=== PATIENT | female | born 1985 | race Caucasian/White ===

== ENCOUNTER 2020-03-22 18:42 | Emergency (ER) | payer OTHER ==
--- NOTE | 2020-03-22 19:17 | ERPHSYRPT ---
- History of Present Illness Historian: patient Patient Subjective Stated Complaint: Right sided pain x 1 week, RLQ pain x today. Triage Nursing Assessment: Pt reports right flank pain last week, today having worsening right sided pain and lower pelvic pain as well as suprapubic pain. Abdomen tender to palpation, bowel sounds audible x 4, denies frequency or hematuria. Right sided pain is constant. Reports white vaginal discharge. LMP 1 week ago. Skin PWD. Physician History: 35 yo wf w supra-pubic pain today/9 out of 10/sharp/R flank pain/nothing makes pain better or worse. Pt currently on cipro for uti prescribed last week by Dr. Langford. She denies fever/dysuria/hematuria/N/V/D. She has had a BTL. Timing/Duration: today Activities at Onset: rest Quality: sharpness Abdominal Pain Onset Location: suprapubic Pain Radiation: flank Severity of Pain-Max: severe Severity of Pain-Current: severe Modifying Factors: Improves With: nothing Associated Symptoms: No chest pain, No diaphoresis, No diarrhea, No fever/chills, No fatigue, No headache, No heartburn, No loss of appetite, No nausea, No neck pain, No rash, No shortness of breath, No syncope, No testicular pain, No vomiting, No weakness Previous symptoms: no prior history Allergies/Adverse Reactions: No Known Drug Allergies Allergy (Unverified 03/22/20 19:03) Hx Tetanus, Diphtheria Vaccination/Date Given: Yes Hx Influenza Vaccination/Date Given: Yes Hx Pneumococcal Vaccination/Date Given: Yes Immunizations Up to Date: Yes Travel Risk - International Travel Have you traveled outside of the country in past 3 weeks: No - Coronavirus Screening Are you exhibiting any of the following symptoms?: No Close contact with a COVID-19 positive Pt in past 14-21 Days: No - Review of Systems Constitutional: No Symptoms Eyes: No Symptoms Ears, Nose, & Throat: No Symptoms Respiratory: No Symptoms Cardiac: No Symptoms Abdominal/Gastrointestinal: No Symptoms, Abdominal Pain Genitourinary Symptoms: No Symptoms Musculoskeletal: No Symptoms Skin: No Symptoms Neurological: No Symptoms Psychological: No Symptoms Endocrine: No Symptoms Hematologic/Lymphatic: No Symptoms Immunological/Allergic: No Symptoms - Past Medical History Pertinent Past Medical History: No - Past Surgical History Past Surgical History: Yes Gastrointestinal: Cholecystectomy Female Surgical History: Tubal Ligation - Social History Smoking Status: Never smoker Exposure to second hand smoke: Yes Drug Use: none Patient Lives Alone: No Significant Family History: no pertinent family hx - Female History Hx Last Menstrual Period: 03/15/2020 Hx Now: No (hx tubal) - Nursing Vital Signs Nursing Vital Signs: Initial Vital Signs Temperature 98.8 F 03/22/20 18:53 Pulse Rate 95 H 03/22/20 18:53 Respiratory Rate 16 03/22/20 18:53 Blood Pressure 140/91 03/22/20 18:53 O2 Sat by Pulse Oximetry 97 03/22/20 18:53 Pain Scale Pain Intensity 3 - Physical Exam General Appearance: no apparent distress Eye Exam: PERRL/EOMI, eyes nml inspection Ears, Nose, Throat Exam: normal ENT inspection, TMs normal, pharynx normal, moist mucous membranes Neck Exam: normal inspection, non-tender, supple, full range of motion, No meningismus, No mass, No Brudzinski, No Kernig's Respiratory Exam: normal breath sounds, lungs clear, airway intact, No respiratory distress Cardiovascular Exam: regular rate/rhythm, normal heart sounds, normal peripheral pulses, No murmur Gastrointestinal/Abdomen Exam: soft, tenderness (Supra-pubic ttp wo guarding/rebound) Back Exam: normal inspection, normal range of motion, CVA tenderness (R) Extremity Exam: normal inspection, normal range of motion Neurologic Exam: alert, oriented x 3, cooperative, vulcanizer II-XII nml as tested, normal mood/affect, sensation nml, No motor deficits, No sensory deficit Skin Exam: normal color, warm, dry, No rash Lymphatic Exam: No adenopathy SpO2 Interpretation: normal SpO2: 97 O2 Delivery: Room Air - CT Exams Abdomen/Pelvis CT Interpretation: Discussed w/radiologist (Splenomegaly/Nothing acute/did not visualize appendix but no inflammation) - Radiology Ultrasound Exam Pelvis Ultrasound: Other (Neg for torsion/cyst per tech) Ordered Tests: Active Orders 24 hr Category Date Time Status ABDOMEN AND PELVIS W/0 CONTRAS [CT] Stat Exams 03/22/20 19:54 Taken PELVIS TRANS VAGINAL [US] Stat Exams 03/22/20 22:03 Taken AMYLASE Stat Lab 03/22/20 20:40 Completed CBC W DIFF Stat Lab 03/22/20 20:40 Completed CMP Stat Lab 03/22/20 20:40 Completed HCG,QUALITATIVE URINE Stat Lab 03/22/20 19:00 Completed LIPASE Stat Lab 03/22/20 20:40 Completed UA W/RFX UR CULTURE Stat Lab 03/22/20 19:05 Completed Medication Summary Discontinued Medications Generic Name Dose Route Start Last Admin Trade Name Freq PRN Reason Stop Dose Admin Ketorolac Tromethamine 30 mg 03/22/20 20:30 03/22/20 20:37 Toradol 30 Mg Injection IV 03/22/20 20:31 30 mg STAT ONE Administration Ketorolac Tromethamine Confirm 03/22/20 20:36 Toradol 30 Mg Injection Administered 03/22/20 20:37 Dose 30 mg .ROUTE .STK-MED ONE Lab/Rad Data: Laboratory Result Diagrams 03/22/20 20:40 03/22/20 20:40 Laboratory Results 03/22/20 03/22/20 03/22/20 Range/Units 20:40 20:40 19:05 WBC 7.7 (4.0-10.5) K/mm3 RBC 4.87 (4.1-5.4) M/mm3 Hgb 14.5 (12.0-16.0) gm/dl Hct 42.5 (35-47) % MCV 87.3 (78-100) fl MCH 29.8 (26-32) pg MCHC 34.1 (32-36) g/dl RDW 12.7 (11.5-14.0) % Plt Count 307 (150-450) K/mm3 MPV 9.5 (7.5-11.0) fl Gran % 51.1 (36.0-66.0) % Eos # (Auto) 0.26 (0-0.5) Absolute Lymphs (auto) 2.77 (1.0-4.6) Absolute Monos (auto) 0.69 (0.0-1.3) Lymphocytes % 36.2 (24.0-44.0) % Monocytes % 9.0 (0.0-12.0) % Eosinophils % 3.4 (0.00-5.0) % Basophils % 0.3 (0.0-0.4) % Absolute Granulocytes 3.92 (1.4-6.9) Basophils # 0.02 (0-0.4) Sodium 137 (137-145) mmol/L Potassium 4.0 (3.5-5.1) mmol/L Chloride 103 (98-107) mmol/L Carbon Dioxide 28 (22-30) mmol/L Anion Gap 9.8 (5-15) MEQ/L BUN 11 (7-17) mg/dL Creatinine 0.79 (0.52-1.04) mg/dL Estimated GFR > 60.0 ML/MIN Glucose 103 (74-106) mg/dL Calcium 9.8 (8.4-10.2) mg/dL Total Bilirubin 0.50 (0.2-1.3) mg/dL AST 22 (14-36) U/L ALT 14 (0-35) U/L Alkaline Phosphatase 61 (38-126) U/L Serum Total Protein 7.7 (6.3-8.2) g/dL Albumin 4.3 (3.5-5.0) g/dL Amylase 72 (30-110) U/L Lipase 155 (23-300) U/L Urine Color YELLOW (YELLOW) Urine Appearance SLIGHTLY CLOUDY (CLEAR) Urine pH 6.0 (5-6) Ur Specific [place] 1.019 (1.005-1.025) Urine Protein NEGATIVE (Negative) Urine Ketones NEGATIVE (NEGATIVE) Urine Blood NEGATIVE (0-5) Ap/ul Urine Nitrite NEGATIVE (NEGATIVE) Urine Bilirubin NEGATIVE (NEGATIVE) Urine Urobilinogen NEGATIVE (0-1) mg/dL Ur Leukocyte Esterase NEGATIVE (NEGATIVE) Urine WBC (Auto) 0-2 (0-5) /HPF Urine RBC (Auto) 0-2 (0-2) /HPF U Epithel Cells (Auto) RARE (FEW) /HPF Urine Bacteria (Auto) NONE (NEGATIVE) /HPF Urine Mucus (Auto) SLIGHT (NEGATIVE) /HPF Urine Culture Reflexed NO (NO) Urine Glucose NEGATIVE (NEGATIVE) mg/dL Urine HCG, Qual (Negative) 03/22/20 Range/Units 19:00 WBC (4.0-10.5) K/mm3 RBC (4.1-5.4) M/mm3 Hgb (12.0-16.0) gm/dl Hct (35-47) % MCV (78-100) fl MCH (26-32) pg MCHC (32-36) g/dl RDW (11.5-14.0) % Plt Count (150-450) K/mm3 MPV (7.5-11.0) fl Gran % (36.0-66.0) % Eos # (Auto) (0-0.5) Absolute Lymphs (auto) (1.0-4.6) Absolute Monos (auto) (0.0-1.3) Lymphocytes % (24.0-44.0) % Monocytes % (0.0-12.0) % Eosinophils % (0.00-5.0) % Basophils % (0.0-0.4) % Absolute Granulocytes (1.4-6.9) Basophils # (0-0.4) Sodium (137-145) mmol/L Potassium (3.5-5.1) mmol/L Chloride (98-107) mmol/L Carbon Dioxide (22-30) mmol/L Anion Gap (5-15) MEQ/L BUN (7-17) mg/dL Creatinine (0.52-1.04) mg/dL Estimated GFR ML/MIN Glucose (74-106) mg/dL Calcium (8.4-10.2) mg/dL Total Bilirubin (0.2-1.3) mg/dL AST (14-36) U/L ALT (0-35) U/L Alkaline Phosphatase (38-126) U/L Serum Total Protein (6.3-8.2) g/dL Albumin (3.5-5.0) g/dL Amylase (30-110) U/L Lipase (23-300) U/L Urine Color (YELLOW) Urine Appearance (CLEAR) Urine pH (5-6) Ur Specific [place] (1.005-1.025) Urine Protein (Negative) Urine Ketones (NEGATIVE) Urine Blood (0-5) Ap/ul Urine Nitrite (NEGATIVE) Urine Bilirubin (NEGATIVE) Urine Urobilinogen (0-1) mg/dL Ur Leukocyte Esterase (NEGATIVE) Urine WBC (Auto) (0-5) /HPF Urine RBC (Auto) (0-2) /HPF U Epithel Cells (Auto) (FEW) /HPF Urine Bacteria (Auto) (NEGATIVE) /HPF Urine Mucus (Auto) (NEGATIVE) /HPF Urine Culture Reflexed (NO) Urine Glucose (NEGATIVE) mg/dL Urine HCG, Qual NEGATIVE (Negative) - Progress Progress: improved Progress Note: 03/22/20 19:17 Pty refused pain meds. 03/22/20 22:10 Pain improved w 30mg IV toradol Counseled pt/family regarding: lab results, diagnosis, need for follow-up, rad results - Departure Departure Disposition: Home Clinical Impression: Abdominal pain Condition: Stable Critical Care Time: No Referrals: ARABELLA LANGFORD MD [Primary Care Provider] - Instructions: Acute Abdomen (Belly Pain), Adult (DC) Additional Instructions: Follow up with family MD or hot die press feeder Return to ER for increasing pain or temperature greater than 100.5
[2020-03-22 19:26] LABS: Appearance SLIGHTLY CLOUDY (CLEAR); Bilirubin NEGATIVE (NEGATIVE); Blood NEGATIVE Ery/ul (0-5); Epithelial Cells RARE /HPF (FEW); Glucose NEGATIVE (NEGATIVE); Ketones NEGATIVE (NEGATIVE); Leukocyte Esterase NEGATIVE (NEGATIVE); Mucus SLIGHT /HPF (NEGATIVE); Nitrite NEGATIVE (NEGATIVE); Protein,Urine Dip NEGATIVE (Negative); RBC 0-2 /HPF (0-2); Specific Gravity 1.019 (1.005-1.025); Urobilinogen NEGATIVE mg/dL (0-1); WBC 0-2 /HPF (0-5)
[2020-03-22] MEDS ORDERED: TORAdol 30 mg Injection IV ONE (20:30)
[2020-03-22] MEDS ORDERED: TORAdol 30 mg Injection ONE (20:36)
[2020-03-22 20:49] LABS: Absolute Neutrophil Ct (ANC) 3.92 (1.4-6.9); BASOPHIL % 0.3 % (0.0-0.4); Basophil (Absolute #) 0.02 (0-0.4); Eosinophil % 3.4 % (0.00-5.0); Eosinophil (Absolute #) 0.26 (0-0.5); Hematocrit 42.5 % (35-47); Hemoglobin 14.5 gm/dl (12.0-16.0); Lymphocyte (Absolute #) 2.77 (1.0-4.6); Lymphocytes % 36.2 % (24.0-44.0); Mean Cell Volume 87.3 fl (78-100); Mean Corpuscular Hemoglobin 29.8 pg (26-32); Mean Corpuscular Hgb Concent. 34.1 g/dl (32-36); Mean Platelet Volume 9.5 fl (7.5-11.0); Monocyte (Absolute #) 0.69 (0.0-1.3); Neutrophil % 51.1 % (36.0-66.0); Platelet Count 307 K/mm3 (150-450); Red Blood Count 4.87 M/mm3 (4.1-5.4); Red Cell Distribution Width 12.7 % (11.5-14.0); White Blood Count 7.7 K/mm3 (4.0-10.5)
[2020-03-22 21:01] LABS: ALBUMIN 4.3 g/dL (3.5-5.0); ALKALINE PHOSPHATASE 61 U/L (38-126); AMYLASE 72 U/L (30-110); ANION GAP 9.8 MEQ/L (5-15); BLOOD UREA NITROGEN 11 mg/dL (7-17); CHLORIDE 103 mmol/L (98-107); Calcium 9.8 mg/dL (8.4-10.2); Carbon Dioxide 28 mmol/L (22-30); Creatinine 1 0.79 mg/dL (0.52-1.04); EST GLOMERULAR FILTRATION RATE > 60.0 ML/MIN; Glucose 103 mg/dL (74-106); LIPASE 155 U/L (23-300); SGOT/AST 22 U/L (14-36); SGPT/ALT 14 U/L (0-35); SODIUM 137 mmol/L (137-145); Total Protein 7.7 g/dL (6.3-8.2)
[2020-03-22 22:09] VITALS: BP 124/84; PULSE 62
[2020-03-22 22:13] VITALS: O2SAT 97
--- NOTE | 2020-03-23 08:35 | XRAY ---
Indication: Lower abdominal pain. History pancreatitis. Multiple contiguous axial images obtained through the abdomen and pelvis without contrast as ordered. Comparison: None Lung bases demonstrates minimal fibrosis/scarring. No infiltrate or effusion. Heart is not enlarged. Noncontrasted stomach and bowel loops appear nonobstructed. Appendix not seen. No free fluid/air. Previous cholecystectomy. Spleen is enlarged measuring 13.3 cm in greatest axial dimension. Remaining liver, pancreas, spleen, adrenal glands, kidneys, ureters, bladder, uterus, and aorta appear unremarkable for noncontrast exam. Osseous structures intact. No ventral or inguinal hernias. Impression: Splenomegaly. Remaining CT abdomen/pelvis without contrast exam is negative.
--- NOTE | 2020-03-23 08:38 | XRAY ---
Indication: Right lower quadrant pain. Two-dimensional and transvaginal pelvic sonogram performed. Comparison: None Uterus anteverted measuring 8.9 x 4.5 x 4.9 cm. Myometrium appears homogeneous. Endometrial stripe measures 11.5 mm. No endometrial cavity mass or fluid collection. Right ovary measures 2.4 x 1.9 x 2.7 cm and the left measures 2.2 x 1.6 x 2.5 cm. Normal follicular cysts and perfusion bilaterally. No suspicious adnexal mass. Tiny cul-de-sac fluid presumed physiologic from rupture/leaking cyst. Impression: Tiny physiologic cul-de-sac fluid. Remaining transvaginal pelvic sonogram is negative.
== END 2020-03-22 22:21 | disposition home or self-care (01) ==
LOC: ED 18:42
DX: R10.31 Right lower quadrant pain (principal)
CPT/HCPCS: 36000; 36415; 74176; 76830; 80053; 81001; 82150; 83690; 84703; 85025; 96374; 99284; J1885

== ENCOUNTER 2022-08-22 01:50 | Emergency (ER) | payer OTHER ==
[2022-08-22] MEDS ORDERED: Sodium Chloride 0.9% 1000 ML 1,000 ML IV STA (02:00)
[2022-08-22] MEDS ORDERED: Hydromorphone 1 mg/ml Injection IV ONE (02:00)
[2022-08-22] MEDS ORDERED: PROTONIX 40 MG IV IV ONE ×2 (02:00→02:04)
--- NOTE | 2022-08-22 02:01 | ERPHSYRPT ---
- History of Present Illness Time Seen by Provider: 08/22/22 02:00 Historian: patient, family Exam Limitations: no limitations Physician History: This is a 37-year-old overweight white female who presents to the emergency department with sudden onset of left upper quadrant left mid abdomen sharp, throbbing aching pain. At approximately 130 this morning she took 2 Tums without relief. She is nauseated but did not vomit. She has not had a fever she denies chest pain, she has not had a cough. She has had no diarrhea. Patient has a history in the past of pancreatitis and she states this feels similar. Patient states that she has had a cholecystectomy and a bilateral tubal ligation in the past. She has no known drug allergies and she takes no medications chronically. Timing/Duration: today Quality: aching, stabbing, throbbing Abdominal Pain Onset Location: LUQ, other (Left of periumbilical region) Pain Radiation: no radiation Severity of Pain-Max: moderate Modifying Factors: Improves With: antacids (Without relief) Associated Symptoms: loss of appetite, nausea, No chest pain, No shortness of breath Previous symptoms: same symptoms as today (Distant past) Allergies/Adverse Reactions: No Known Drug Allergies Allergy (Unverified 03/22/20 19:03) Hx Tetanus, Diphtheria Vaccination/Date Given: Yes Hx Influenza Vaccination/Date Given: Yes Hx Pneumococcal Vaccination/Date Given: Yes Travel Risk - International Travel Have you traveled outside of the country in past 3 weeks: No - Coronavirus Screening Are you exhibiting any of the following symptoms?: No Close contact with a COVID-19 positive Pt in past 14-21 Days: No - Review of Systems Constitutional: No Symptoms Eyes: No Symptoms Ears, Nose, & Throat: No Symptoms Respiratory: No Symptoms Cardiac: No Symptoms Abdominal/Gastrointestinal: Abdominal Pain, Nausea Genitourinary Symptoms: No Symptoms Musculoskeletal: No Symptoms Skin: No Symptoms Neurological: No Symptoms Psychological: No Symptoms Endocrine: No Symptoms Hematologic/Lymphatic: No Symptoms Immunological/Allergic: No Symptoms All Other Systems: Reviewed and Negative - Past Medical History Pertinent Past Medical History: No - Past Surgical History Past Surgical History: Yes Gastrointestinal: Cholecystectomy Female Surgical History: Tubal Ligation - Social History Smoking Status: Never smoker Exposure to second hand smoke: Yes Drug Use: none Patient Lives Alone: No Significant Family History: no pertinent family hx - Nursing Vital Signs Nursing Vital Signs: Initial Vital Signs Temperature 97.5 F 08/22/22 01:56 Pulse Rate 114 H 08/22/22 01:56 Respiratory Rate 28 H 08/22/22 01:56 Blood Pressure 122/86 08/22/22 01:56 O2 Sat by Pulse Oximetry 100 08/22/22 01:56 Pain Scale Pain Intensity 0 - Physical Exam General Appearance: mild distress, alert, anxiety Eye Exam: PERRL/EOMI, eyes nml inspection Ears, Nose, Throat Exam: normal ENT inspection, moist mucous membranes Neck Exam: normal inspection, non-tender, supple, full range of motion Respiratory Exam: normal breath sounds, lungs clear, airway intact, No chest tenderness, No respiratory distress Cardiovascular Exam: tachycardia Gastrointestinal/Abdomen Exam: soft, normal bowel sounds, tenderness (Left upper quadrant left of periumbilical region), guarding, rebound Pelvic Exam: not done Rectal Exam: not done Back Exam: normal inspection, normal range of motion, No CVA tenderness, No vertebral tenderness Extremity Exam: normal inspection, normal range of motion, pelvis stable Neurologic Exam: alert, oriented x 3, cooperative, travel nurse II-XII nml as tested, normal mood/affect, nml cerebellar function, nml station & gait, sensation nml Skin Exam: normal color, warm, dry Lymphatic Exam: No adenopathy SpO2 Interpretation: normal O2 Delivery: Room Air - Course Nursing assessment & vital signs reviewed: Yes Ordered Tests: Active Orders 24 hr Category Date Time Status Clean Catch Urine Specimen STAT Care 08/22/22 02:32 Active IV Insertion STAT Care 08/22/22 02:00 Active ABDOMEN AND PELVIS W/0 CONTRAS [CT] Stat Exams 08/22/22 02:01 Completed AMYLASE Stat Lab 08/22/22 02:00 Completed CBC W DIFF Stat Lab 08/22/22 02:00 Completed CMP Stat Lab 08/22/22 02:00 Completed HCG QUALITATIVE, SERUM Stat Lab 08/22/22 02:00 Completed LIPASE Stat Lab 08/22/22 02:00 Completed Lactic Acid Stat Lab 08/22/22 02:18 Completed UA W/RFX UR CULTURE Stat Lab 08/22/22 02:27 Completed Urine Triage Profile Stat Lab 08/22/22 02:32 Completed Medication Summary Discontinued Medications Generic Name Dose Route Start Last Admin Trade Name Freq PRN Reason Stop Dose Admin Hydromorphone HCl 1 mg 08/22/22 02:00 08/22/22 02:07 Hydromorphone 1 Mg/1ml Inj 1 Mg/Ml Syringe IV 08/22/22 02:01 1 mg STAT ONE Administration Hydromorphone HCl Confirm 08/22/22 02:04 Hydromorphone 1 Mg/1ml Inj 1 Mg/Ml Syringe Administered 08/22/22 02:05 Dose 1 mg .ROUTE .STK-MED ONE Sodium Chloride 1,000 mls @ 999 mls/hr 08/22/22 02:00 08/22/22 04:25 Sodium Chloride 0.9% 1000 Ml IV 08/22/22 03:00 Infused .Q1H1M STA Infusion Sodium Chloride Confirm 08/22/22 02:03 Sodium Chloride 0.9% 1000 Ml Administered 08/22/22 02:04 Dose 1,000 mls @ ud .ROUTE .STK-MED ONE Sodium Chloride 500 mls @ 999 mls/hr 08/22/22 04:11 08/22/22 04:17 Sodium Chloride 0.9% 500 Ml IV 08/22/22 04:41 999 mls/hr .Q31M ONE Administration Sodium Chloride Confirm 08/22/22 04:16 Sodium Chloride 0.9% 500 Ml Administered 08/22/22 04:17 Dose 500 mls @ ud IV .STK-MED ONE Lorazepam 1 mg 08/22/22 02:38 08/22/22 02:41 Lorazepam 2 Mg/1 Ml 2 Mg Vial IV 08/22/22 02:39 1 mg STAT ONE Administration Lorazepam Confirm 08/22/22 02:40 Lorazepam 2 Mg/1 Ml 2 Mg Vial Administered 08/22/22 02:41 Dose 2 mg .ROUTE .STK-MED ONE Pantoprazole Sodium 40 mg 08/22/22 02:00 08/22/22 02:07 Pantoprazole 40 Mg Vial IV 08/22/22 02:01 40 mg STAT ONE Administration Pantoprazole Sodium Confirm 08/22/22 02:04 Pantoprazole 40 Mg Vial Administered 08/22/22 02:05 Dose 40 mg IV .STK-MED ONE Lab/Rad Data: Laboratory Result Diagrams 08/22/22 02:00 08/22/22 02:00 Laboratory Results 08/22/22 08/22/22 08/22/22 Range/Units 02:32 02:27 02:18 WBC (4.0-10.5) x10^3/uL RBC (4.1-5.4) x10^6/uL Hgb (12.0-16.0) g/dL Hct (35-47) % MCV (78-100) fL MCH (26-32) pg MCHC (32-36) g/dL RDW (11.5-14.0) % Plt Count (150-450) x10^3/uL MPV (7.5-11.0) fL Gran % (36.0-66.0) % Immature Gran % (Auto) (0.00-0.4) % Nucleat RBC Rel Count (0.00-0.1) % Eos # (Auto) (0-0.5) x10^3/uL Immature Gran # (Auto) (0.00-0.03) x10^3u/L Absolute Lymphs (auto) (1.0-4.6) x10^3/uL Absolute Monos (auto) (0.0-1.3) x10^3/uL Absolute Nucleated RBC (0.00-0.01) x10^3u/L Lymphocytes % (24.0-44.0) % Monocytes % (0.0-12.0) % Eosinophils % (0.00-5.0) % Basophils % (0.0-0.4) % Absolute Granulocytes (1.4-6.9) x10^3/uL Basophils # (0-0.4) x10^3/uL Sodium (137-145) mmol/L Potassium (3.5-5.1) mmol/L Chloride (98-107) mmol/L Carbon Dioxide (22-30) mmol/L Anion Gap (5-15) MEQ/L BUN (7-17) mg/dL Creatinine (0.52-1.04) mg/dL Estimated GFR ML/MIN Glucose (74-106) mg/dL Lactic Acid 1.4 (0.4-2.0) Calcium (8.4-10.2) mg/dL Total Bilirubin (0.2-1.3) mg/dL AST (14-36) U/L ALT (0-35) U/L Alkaline Phosphatase (38-126) U/L Serum Total Protein (6.3-8.2) g/dL Albumin (3.5-5.0) g/dL Amylase (30-110) U/L Lipase (23-300) U/L Serum HCG, Qual (NEGATIVE) Urine Color Yellow (Yellow) Urine Appearance Clear (Clear) Urine pH 6.0 (4.6-8.0) Ur Specific [place] 1.025 (1.005-1.030) Urine Protein Negative (Negative) Urine Glucose (UA) Negative (Negative) mg/dL Urine Ketones Negative (Negative) Urine Blood Negative (Negative) Urine Nitrite Negative (Negative) Urine Bilirubin Negative (Negative) Urine Urobilinogen 1.0 A (0.2) mg/dL Ur Leukocyte Esterase Trace A (Negative) U Hyaline Cast (Auto) NONE SEEN (0-2) /LPF Urine Microscopic RBC 0-2 (0-5) /HPF Urine Microscopic WBC 3-5 (0-5) /HPF Ur Epithelial Cells None Seen (None Seen) /HPF Urine Bacteria None Seen (None Seen) /HPF Urine Culture Reflexed NO (NO) Urine Opiates Level NEGATIVE (NEGATIVE) Ur Methadone NEGATIVE (NEGATIVE) Urine Barbiturates NEGATIVE (NEGATIVE) Ur Phencyclidine (PCP) NEGATIVE (NEGATIVE) Urine Amphetamine NEGATIVE (NEGATIVE) U Benzodiazepine Level NEGATIVE (NEGATIVE) Urine Cocaine NEGATIVE (NEGATIVE) Urine Marijuana (THC) NEGATIVE (NEGATIVE) 08/22/22 08/22/22 08/22/22 Range/Units 02:00 02:00 02:00 WBC 10.0 (4.0-10.5) x10^3/uL RBC 5.08 (4.1-5.4) x10^6/uL Hgb 14.7 (12.0-16.0) g/dL Hct 44.2 (35-47) % MCV 87.0 (78-100) fL MCH 28.9 (26-32) pg MCHC 33.3 (32-36) g/dL RDW 12.5 (11.5-14.0) % Plt Count 271 (150-450) x10^3/uL MPV 9.3 (7.5-11.0) fL Gran % 74.3 H (36.0-66.0) % Immature Gran % (Auto) 0.2 (0.00-0.4) % Nucleat RBC Rel Count 0.0 (0.00-0.1) % Eos # (Auto) 0.16 (0-0.5) x10^3/uL Immature Gran # (Auto) 0.02 (0.00-0.03) x10^3u/L Absolute Lymphs (auto) 1.97 (1.0-4.6) x10^3/uL Absolute Monos (auto) 0.39 (0.0-1.3) x10^3/uL Absolute Nucleated RBC 0.00 (0.00-0.01) x10^3u/L Lymphocytes % 19.7 L (24.0-44.0) % Monocytes % 3.9 (0.0-12.0) % Eosinophils % 1.6 (0.00-5.0) % Basophils % 0.3 (0.0-0.4) % Absolute Granulocytes 7.44 H (1.4-6.9) x10^3/uL Basophils # 0.03 (0-0.4) x10^3/uL Sodium 139 (137-145) mmol/L Potassium 3.8 (3.5-5.1) mmol/L Chloride 101 (98-107) mmol/L Carbon Dioxide 32 H (22-30) mmol/L Anion Gap 10.6 (5-15) MEQ/L BUN 16 (7-17) mg/dL Creatinine 0.84 (0.52-1.04) mg/dL Estimated GFR > 60.0 ML/MIN Glucose 119 H (74-106) mg/dL Lactic Acid (0.4-2.0) Calcium 9.6 (8.4-10.2) mg/dL Total Bilirubin 0.50 (0.2-1.3) mg/dL AST 52 H (14-36) U/L ALT 26 (0-35) U/L Alkaline Phosphatase 60 (38-126) U/L Serum Total Protein 7.9 (6.3-8.2) g/dL Albumin 4.4 (3.5-5.0) g/dL Amylase 80 (30-110) U/L Lipase 216 (23-300) U/L Serum HCG, Qual NEGATIVE (NEGATIVE) Urine Color (Yellow) Urine Appearance (Clear) Urine pH (4.6-8.0) Ur Specific [place] (1.005-1.030) Urine Protein (Negative) Urine Glucose (UA) (Negative) mg/dL Urine Ketones (Negative) Urine Blood (Negative) Urine Nitrite (Negative) Urine Bilirubin (Negative) Urine Urobilinogen (0.2) mg/dL Ur Leukocyte Esterase (Negative) U Hyaline Cast (Auto) (0-2) /LPF Urine Microscopic RBC (0-5) /HPF Urine Microscopic WBC (0-5) /HPF Ur Epithelial Cells (None Seen) /HPF Urine Bacteria (None Seen) /HPF Urine Culture Reflexed (NO) Urine Opiates Level (NEGATIVE) Ur Methadone (NEGATIVE) Urine Barbiturates (NEGATIVE) Ur Phencyclidine (PCP) (NEGATIVE) Urine Amphetamine (NEGATIVE) U Benzodiazepine Level (NEGATIVE) Urine Cocaine (NEGATIVE) Urine Marijuana (THC) (NEGATIVE) - Progress Progress: improved, re-examined Progress Note: 08/22/22 06:00 This patient's medical issue is 1 of moderate complexity. The level of complexity and the work-up performed based on the patient's past medical history, review of the patient's medication list, review of the drug allergy list, history present illness and physical findings on examination. This work- up included placement of intravenous line, infusion of normal saline solution, provide the patient with intravenous Zofran and intravenous Dilaudid. Patient was very anxious and we added Ativan 1 mg intravenously to the regimen. We ordered an amylase, lipase, CBC, CMP, urine drug screen, urinalysis, and CAT scan of the abdomen pelvis. I reviewed the results of the above work-up. The CAT scan was negative for any acute intra-abdominal or intrapelvic abnormality. The CAT scan was read by the radiologist and I reviewed the impression. Patient has no evidence of any urinary tract infection. Counseled pt/family regarding: lab results, diagnosis, need for follow-up, rad results Medical Desision Making - Discussion of managment Reviewed:: Test results Agreed on:: Treatment plan, need for follow-up - Diagnostic Testing Radiological Interpretation: Reviewed by me, Teleradiologist Report - Risk of complications The pt has a mod risk of morbidity or mortality based on: Need for prescription drug management - Departure Departure Disposition: Home Clinical Impression: Left upper quadrant abdominal pain Condition: Stable Critical Care Time: No Referrals: ARABELLA ALNGFORD MD [Primary Care Provider] - Follow up/PCP as directed Additional Instructions: Drink plenty of fluids. Avoid fatty greasy spicy foods. Take your medication as prescribed. Follow-up with your primary care physician for further evaluation and management. Prescriptions: Famotidine 20 mg [Pepcid 20 MG] 20 mg PO DAILY #10 tablet
[2022-08-22] MEDS ORDERED: Sodium Chloride 0.9% 1000 ML 1,000 ML ONE (02:03)
[2022-08-22] MEDS ORDERED: Hydromorphone 1 mg/ml Injection ONE (02:04)
[2022-08-22 02:11] LABS: Absolute Neutrophil Ct (ANC) 7.44 x10^3/uL (1.4-6.9); BASOPHIL % 0.3 % (0.0-0.4); Basophil (Absolute #) 0.03 x10^3/uL (0-0.4); Eosinophil % 1.6 % (0.00-5.0); Eosinophil (Absolute #) 0.16 x10^3/uL (0-0.5); Hematocrit 44.2 % (35-47); Hemoglobin 14.7 g/dL (12.0-16.0); IMMATURE GRAN # 0.02 x10^3u/L (0.00-0.03); IMMATURE GRAN % 0.2 % (0.00-0.4); Lymphocyte (Absolute #) 1.97 x10^3/uL (1.0-4.6); Lymphocytes % 19.7 % (24.0-44.0); Mean Corpuscular Hemoglobin 28.9 pg (26-32); Mean Corpuscular Hgb Concent. 33.3 g/dL (32-36); Mean Platelet Volume 9.3 fL (7.5-11.0); Monocyte (Absolute #) 0.39 x10^3/uL (0.0-1.3); Monocytes % 3.9 % (0.0-12.0); Neutrophil % 74.3 % (36.0-66.0); Platelet Count 271 x10^3/uL (150-450); Red Blood Count 5.08 x10^6/uL (4.1-5.4); Red Cell Distribution Width 12.5 % (11.5-14.0)
[2022-08-22 02:27] LABS: HCG SERUM TEST NEGATIVE (NEGATIVE)
[2022-08-22 02:28] LABS: ALBUMIN 4.4 g/dL (3.5-5.0); ALKALINE PHOSPHATASE 60 U/L (38-126); AMYLASE 80 U/L (30-110); ANION GAP 10.6 MEQ/L (5-15); BLOOD UREA NITROGEN 16 mg/dL (7-17); CHLORIDE 101 mmol/L (98-107); Calcium 9.6 mg/dL (8.4-10.2); Carbon Dioxide 32 mmol/L (22-30); Creatinine 1 0.84 mg/dL (0.52-1.04); EST GLOMERULAR FILTRATION RATE > 60.0 ML/MIN; Glucose 119 mg/dL (74-106); LIPASE 216 U/L (23-300); Potassium 3.8 mmol/L (3.5-5.1); SGOT/AST 52 U/L (14-36); SGPT/ALT 26 U/L (0-35); SODIUM 139 mmol/L (137-145); Total Protein 7.9 g/dL (6.3-8.2)
[2022-08-22] MEDS ORDERED: Ativan 2 MG/1 ML VIAL IV ONE (02:38)
[2022-08-22] MEDS ORDERED: Ativan 2 MG/1 ML VIAL ONE (02:40)
[2022-08-22 02:43] LABS: Appearance Clear (Clear); Bacteria None Seen /HPF (None Seen); Bilirubin Negative (Negative); Blood Negative (Negative); Epithelial Cells None Seen /HPF (None Seen); Glucose, Urine Negative (Negative); Hyaline Casts NONE SEEN /LPF (0-2); Ketones Negative (Negative); Leukocyte Esterase Trace (Negative); Nitrite Negative (Negative); Protein,Urine Dip Negative (Negative); RBC 0-2 /HPF (0-5); Specific Gravity 1.025 (1.005-1.030)
[2022-08-22 02:48] LABS: ADD URINE CULTURE? NO (NO)
[2022-08-22 03:01] LABS: Amphetamine,Urine NEGATIVE (NEGATIVE); Barbiturate,Urine NEGATIVE (NEGATIVE); Benzodiazepine,Urine NEGATIVE (NEGATIVE); Cocaine,Urine NEGATIVE (NEGATIVE); Methadone,Urine NEGATIVE (NEGATIVE); Opiate,Urine NEGATIVE (NEGATIVE); PCP,Urine NEGATIVE (NEGATIVE); THC,Urine NEGATIVE (NEGATIVE)
--- NOTE | 2022-08-22 03:42 | XRAY ---
CLINICAL HISTORY:Abdominal pain. COMPARISON:None. TECHNIQUES:Axial sections of nonenhanced CT examination of the abdomen and pelvis were obtained. Reformatted coronal and sagittal images were also acquired. FINDINGS: The liver is normal in size and attenuation. No diffuse or focal hepatic abnormality is noted. No definite evidence of intrahepatic biliary dilatation. S/p cholecystectomy. CBD is slightly prominent, likely secondary to postcholecystectomy status. Pancreas appears unremarkable on this unenhanced examination. No definite evidence of acute pancreatitis. Bilateral adrenal glands and spleen are normal. Both kidneys are normal in size and shape. No definite evidence of urolithiasis or obstructive uropathy. The bladder is partially distended. No definite intravesical abnormality was seen. Uterus and bilateral adnexa appear unremarkable. Few phleboliths are noted within the pelvic region. The stomach is normally distended. No significant abnormality in the visualized large or small bowel loops. The appendix is not separately visualized. However, there are no secondary signs of acute appendicitis. No significant abdominal or pelvic lymphadenopathy. No ascites or pneumoperitoneum. Atelectatic changes in bilateral lung bases. No significant bony abnormality. IMPRESSION: No significant abnormality was noted on this unenhanced examination. No definite evidence of acute pancreatitis. No significant interval changes from prior CT examination. Electronically Signed by: Leni Linares MD. (08/22/2022 02:34:54 SAW GRINDER)
[2022-08-22] MEDS ORDERED: Sodium Chloride 0.9% 500 ML 500 ML IV ONE ×2 (04:11→04:16)
[2022-08-22 06:08] VITALS: BP 116/70; PULSE 90; O2SAT 98
[2022-08-22] MEDS ORDERED: NORCO 5/325 MG PO ONE (06:19)
[2022-08-22] MEDS ORDERED: NORCO 5/325 MG ONE (06:22)
== END 2022-08-22 06:42 | disposition home or self-care (01) ==
LOC: ED 01:50
DX: R10.12 Left upper quadrant pain (principal); R11.0 Nausea
CPT/HCPCS: 36000; 36415; 74176; 80053; 80307; 81001; 82150; 83605; 83690; 84703; 85025; 96360; 96374; 96375; 99284; J1170; J2060; A9270-GY

== ENCOUNTER 2024-07-18 10:16 | Emergency (ER) | payer OTHER ==
[2024-07-18 10:48] VITALS: PULSE 99; RESP 20; TEMP 99.4
--- NOTE | 2024-07-18 11:32 | ERPHSYRPT ---
- History of Present Illness Time Seen by Provider: 07/18/24 11:05 Source: patient Exam Limitations: no limitations Patient Subjective Stated Complaint: pt reports cough that worsens after eating and drinking, states approx one week ago she had an illness/flu-like s/s and recovered at home, she is concerned for pneumonia, pt states she was seen at [facility] ED last night and left without being seen by the MD, but did have a CXR and resp swab but does not know results. Triage Nursing Assessment: pt is aox3, pupils perrl, afebrile, pt working on her laptop in room, resps easy and non labored, lung sounds are clear throughout, pt with intermittent cough, radial pulses strong and equal, cap refill < 3 seconds, pt skin pink warm dry. Physician History: Since 13 days ago pt has had a cough productive of green phlegm, fever up to 103 degrees & chest pain; for the past 2 days dizziness, diaphoresis, nausea and shortness of air. Allergies/Adverse Reactions: No Known Drug Allergies Allergy (Unverified 03/22/20 19:03) Hx Tetanus, Diphtheria Vaccination/Date Given: Yes Hx Influenza Vaccination/Date Given: No Hx Pneumococcal Vaccination/Date Given: No Immunizations Up to Date: Yes Travel Risk - International Travel Have you traveled outside of the country in past 3 weeks: No - Emerging Infectious Disease Are you exhibiting symptoms associated with any current EIDs: Yes Symptoms: Cough: New Onset - Review of Systems Constitutional: Fever Respiratory: Cough, Dyspnea Cardiac: Chest Pain Abdominal/Gastrointestinal: Nausea, No Abdominal Pain, No Vomiting, No Diarrhea Neurological: Dizziness, No Headache - Past Medical History Pertinent Past Medical History: Yes Neurological History: No Pertinent History ENT History: No Pertinent History Cardiac History: No Pertinent History Respiratory History: Asthma, COPD Endocrine Medical History: No Pertinent History Musculoskeletal History: No Pertinent History GI Medical History: Pancreatitis, Other History: No Pertinent History Psycho-Social History: No Pertinent History Female Reproductive Disorders: No Pertinent History Other Medical History: gall stones. PT REPORTS COVID INDUCED COPD PER DR LANGFORD - Past Surgical History Past Surgical History: Yes Neuro Surgical History: No Pertinent History Cardiac: No Pertinent History Respiratory: No Pertinent History Gastrointestinal: Cholecystectomy Genitourinary: No Pertinent History Musculoskeletal: No Pertinent History Female Surgical History: Dilation & Curettage, Tubal Ligation, Other Significant Family History: no pertinent family hx - Female History Hx Last Menstrual Period: 07/08/24 Hx Now: No - Social History Smoking Status: Never smoker Exposure to second hand smoke: No Drug Use: none - Social Determinants of Health Will the patient participate in the screening: Yes Do you worry about a steady place to live?: No Do you have any problems with any of the following?: No known problems In the past 12 months,have you had to go without utilities?: No Transportation Issues: No Has anyone in your support network made you feel unsafe?: No Have you or anyone in your house had to go w/o enough food: No - Nursing Vital Signs Nursing Vital Signs: Initial Vital Signs Temperature 99.4 F 07/18/24 10:22 Pulse Rate 99 H 07/18/24 10:22 Respiratory Rate 20 07/18/24 10:22 Blood Pressure 131/98 07/18/24 10:22 O2 Sat by Pulse Oximetry 98 07/18/24 10:22 Pain Scale Pain Intensity 6 - Physical Exam General Appearance: alert Eye Exam: eyes nml inspection Ears, Nose, Throat Exam: TMs normal, pharyngeal erythema (mild) Neck Exam: normal inspection Respiratory Exam: lungs clear, airway intact Cardiovascular Exam: normal heart sounds Gastrointestinal/Abdomen Exam: normal bowel sounds Back Exam: normal inspection Extremity Exam: No pedal edema Neurologic Exam: alert, cooperative Skin Exam: warm, dry SpO2 Interpretation: normal SpO2: 98 O2 Delivery: Room Air - Course Nursing assessment & vital signs reviewed: Yes EKG Interpreted by Me: RATE (70), Sinus Rhythm, NORMAL AXIS, Other (QTc = 398) - Radiology Exams Chest X-ray Interpretation: Discussed w/ radiologist, No Pneumonia Ordered Tests: Active Orders 24 hr Category Date Time Status EKG-ER Only STAT Care 07/18/24 11:28 Active CHEST 2 VIEWS (PA AND LAT) Stat Exams 07/18/24 11:29 Completed AMYLASE Stat Lab 07/18/24 11:52 Completed CBC W DIFF Stat Lab 07/18/24 11:52 Completed CMP Stat Lab 07/18/24 11:52 Completed D-DIMER QUANTITATIVE Stat Lab 07/18/24 11:52 Completed HCG QUALITATIVE, SERUM Stat Lab 07/18/24 11:52 Completed LIPASE Stat Lab 07/18/24 11:52 Completed Lactic Acid Stat Lab 07/18/24 12:02 Completed MAGNESIUM Stat Lab 07/18/24 11:52 Completed MONO SCREEN Stat Lab 07/18/24 11:52 Completed NT PRO BNPII Stat Lab 07/18/24 11:52 Completed TROPONIN Q4H Lab 07/18/24 11:52 Completed TROPONIN Q4H Lab 07/18/24 15:30 Ordered TROPONIN Q4H Lab 07/18/24 19:30 Ordered UA W/RFX UR CULTURE Stat Lab 07/18/24 11:29 Ordered VENOUS BLOOD GAS Stat Lab 07/18/24 12:02 Completed Lab/Rad Data: Laboratory Result Diagrams 07/18/24 11:52 07/18/24 11:52 Laboratory Results 07/18/24 07/18/24 07/18/24 Range/Units 12:02 12:02 11:55 WBC (3.98-10.04) x10^3/uL RBC (3.93-5.22) x10^6/uL Hgb (11.2-15.7) g/dL Hct (34.1-44.9) % MCV (79.4-94.8) fL MCH (25.6-32.2) pg MCHC (32.2-35.5) g/dL RDW (11.7-14.4) % Plt Count (182-369) x10^3/uL MPV (9.4-12.3) fL Gran % (34.0-71.1) % Immature Gran % (Auto) (0.001-0.429) % Nucleat RBC Rel Count (0.00-0.2) % Eos # (Auto) (0.04-0.36) x10^3/uL Immature Gran # (Auto) (0.001-0.031) x10^3u/L Absolute Lymphs (auto) (1.18-3.74) x10^3/uL Absolute Monos (auto) (0.24-0.86) x10^3/uL Absolute Nucleated RBC (0.00-0.012) x10^3u/L Lymphocytes % (19.3-51.7) % Monocytes % (4.7-12.5) % Eosinophils % (0.7-5.8) % Basophils % (0.1-1.2) % Absolute Granulocytes (1.56-6.13) x10^3/uL Basophils # (0.01-0.08) x10^3/uL D-Dimer (0.0-0.50) mg/L pO2/FiO2 Ratio 21.0 % VBG pH 7.40 (7.32-7.42) VBG pCO2 at Pat Temp 46 (42-55) mm/Hg VBG pO2 at Pat Temp 37 (25-40) mm/Hg VBG HCO3 28.5 H (22-28) meq/L VBG O2 Sat (Blaise) 63.9 L (95-100) VBG Base Excess 3.0 H (-2.0-2.0) VBG Hemoglobin 13.7 VBG Carboxyhemoglobin 3.7 (0.0-6.9) % T HGB POC Potassium 4.0 (3.5-5.1) Sodium (135-145) mmol/L Potassium (3.5-5.1) mmol/L Chloride (98-107) mmol/L Carbon Dioxide (22-30) mmol/L Anion Gap (5-15) MEQ/L BUN (7-17) mg/dL Creatinine (0.52-1.04) mg/dL Estimated GFR ML/MIN Glucose (74-106) mg/dL Lactic Acid 0.6 (0.4-2.0) Calcium (8.4-10.2) mg/dL Magnesium (1.6-2.3) mg/dL Total Bilirubin (0.2-1.3) mg/dL AST (14-36) U/L ALT (0-35) U/L Alkaline Phosphatase (38-126) U/L Troponin I (0.000-0.033) ng/mL NT-Pro-B Natriuret Pep (<300) pg/mL Serum Total Protein (6.3-8.2) g/dL Albumin (3.5-5.0) g/dL Amylase (30-110) U/L Lipase (23-300) U/L Serum HCG, Qual (NEGATIVE) Monoscreen (NEGATIVE) Influenza Type A Ag NEGATIVE (NEGATIVE) Influenza Type B Ag NEGATIVE (NEGATIVE) RSV (PCR) POSITIVE A (NEGATIVE) SARS-CoV-2 (PCR) NEGATIVE (NEGATIVE) Group A Strep Antibody (NEGATIVE) 07/18/24 07/18/24 07/18/24 Range/Units 11:55 11:52 11:52 WBC (3.98-10.04) x10^3/uL RBC (3.93-5.22) x10^6/uL Hgb (11.2-15.7) g/dL Hct (34.1-44.9) % MCV (79.4-94.8) fL MCH (25.6-32.2) pg MCHC (32.2-35.5) g/dL RDW (11.7-14.4) % Plt Count (182-369) x10^3/uL MPV (9.4-12.3) fL Gran % (34.0-71.1) % Immature Gran % (Auto) (0.001-0.429) % Nucleat RBC Rel Count (0.00-0.2) % Eos # (Auto) (0.04-0.36) x10^3/uL Immature Gran # (Auto) (0.001-0.031) x10^3u/L Absolute Lymphs (auto) (1.18-3.74) x10^3/uL Absolute Monos (auto) (0.24-0.86) x10^3/uL Absolute Nucleated RBC (0.00-0.012) x10^3u/L Lymphocytes % (19.3-51.7) % Monocytes % (4.7-12.5) % Eosinophils % (0.7-5.8) % Basophils % (0.1-1.2) % Absolute Granulocytes (1.56-6.13) x10^3/uL Basophils # (0.01-0.08) x10^3/uL D-Dimer 0.22 (0.0-0.50) mg/L pO2/FiO2 Ratio % VBG pH (7.32-7.42) VBG pCO2 at Pat Temp (42-55) mm/Hg VBG pO2 at Pat Temp (25-40) mm/Hg VBG HCO3 (22-28) meq/L VBG O2 Sat (Blaise) (95-100) VBG Base Excess (-2.0-2.0) VBG Hemoglobin VBG Carboxyhemoglobin (0.0-6.9) % T HGB POC Potassium (3.5-5.1) Sodium (135-145) mmol/L Potassium (3.5-5.1) mmol/L Chloride (98-107) mmol/L Carbon Dioxide (22-30) mmol/L Anion Gap (5-15) MEQ/L BUN (7-17) mg/dL Creatinine (0.52-1.04) mg/dL Estimated GFR ML/MIN Glucose (74-106) mg/dL Lactic Acid (0.4-2.0) Calcium (8.4-10.2) mg/dL Magnesium (1.6-2.3) mg/dL Total Bilirubin (0.2-1.3) mg/dL AST (14-36) U/L ALT (0-35) U/L Alkaline Phosphatase (38-126) U/L Troponin I (0.000-0.033) ng/mL NT-Pro-B Natriuret Pep (<300) pg/mL Serum Total Protein (6.3-8.2) g/dL Albumin (3.5-5.0) g/dL Amylase (30-110) U/L Lipase (23-300) U/L Serum HCG, Qual NEGATIVE (NEGATIVE) Monoscreen WEAKLY POSITIVE A (NEGATIVE) Influenza Type A Ag (NEGATIVE) Influenza Type B Ag (NEGATIVE) RSV (PCR) (NEGATIVE) SARS-CoV-2 (PCR) (NEGATIVE) Group A Strep Antibody NOT DETECTED (NEGATIVE) 07/18/24 07/18/24 07/18/24 Range/Units 11:52 11:52 11:52 WBC 5.2 (3.98-10.04) x10^3/uL RBC 4.66 (3.93-5.22) x10^6/uL Hgb 13.1 (11.2-15.7) g/dL Hct 39.4 (34.1-44.9) % MCV 84.5 (79.4-94.8) fL MCH 28.1 (25.6-32.2) pg MCHC 33.2 (32.2-35.5) g/dL RDW 12.8 (11.7-14.4) % Plt Count 266 (182-369) x10^3/uL MPV 9.0 L (9.4-12.3) fL Gran % 51.9 (34.0-71.1) % Immature Gran % (Auto) 0.4 (0.001-0.429) % Nucleat RBC Rel Count 0.0 (0.00-0.2) % Eos # (Auto) 0.19 (0.04-0.36) x10^3/uL Immature Gran # (Auto) 0.02 (0.001-0.031) x10^3u/L Absolute Lymphs (auto) 1.66 (1.18-3.74) x10^3/uL Absolute Monos (auto) 0.59 (0.24-0.86) x10^3/uL Absolute Nucleated RBC 0.00 (0.00-0.012) x10^3u/L Lymphocytes % 32.0 (19.3-51.7) % Monocytes % 11.4 (4.7-12.5) % Eosinophils % 3.7 (0.7-5.8) % Basophils % 0.6 (0.1-1.2) % Absolute Granulocytes 2.70 (1.56-6.13) x10^3/uL Basophils # 0.03 (0.01-0.08) x10^3/uL D-Dimer (0.0-0.50) mg/L pO2/FiO2 Ratio % VBG pH (7.32-7.42) VBG pCO2 at Pat Temp (42-55) mm/Hg VBG pO2 at Pat Temp (25-40) mm/Hg VBG HCO3 (22-28) meq/L VBG O2 Sat (Blaise) (95-100) VBG Base Excess (-2.0-2.0) VBG Hemoglobin VBG Carboxyhemoglobin (0.0-6.9) % T HGB POC Potassium (3.5-5.1) Sodium 140 (135-145) mmol/L Potassium 4.2 (3.5-5.1) mmol/L Chloride 104 (98-107) mmol/L Carbon Dioxide 26 (22-30) mmol/L Anion Gap 14.3 (5-15) MEQ/L BUN 10 (7-17) mg/dL Creatinine 0.68 (0.52-1.04) mg/dL Estimated GFR 112.1 ML/MIN Glucose 98 (74-106) mg/dL Lactic Acid (0.4-2.0) Calcium 9.4 (8.4-10.2) mg/dL Magnesium 1.9 (1.6-2.3) mg/dL Total Bilirubin 0.50 (0.2-1.3) mg/dL AST 34 (14-36) U/L ALT 26 (0-35) U/L Alkaline Phosphatase 62 (38-126) U/L Troponin I < 0.012 (0.000-0.033) ng/mL NT-Pro-B Natriuret Pep 30.6 (<300) pg/mL Serum Total Protein 7.2 (6.3-8.2) g/dL Albumin 4.0 (3.5-5.0) g/dL Amylase 53 (30-110) U/L Lipase 155 (23-300) U/L Serum HCG, Qual (NEGATIVE) Monoscreen (NEGATIVE) Influenza Type A Ag (NEGATIVE) Influenza Type B Ag (NEGATIVE) RSV (PCR) (NEGATIVE) SARS-CoV-2 (PCR) (NEGATIVE) Group A Strep Antibody (NEGATIVE) - Progress Progress: unchanged Counseled pt/family regarding: lab results, diagnosis, need for follow-up, rad results Medical Desision Making - Diagnostic Testing Diagnostic test were ordered, analyzed, and reviewed by me: Yes Radiological Interpretation: Discussed w/ radiologist - Departure Departure Disposition: Home Clinical Impression: Infectious mononucleosis, RSV (respiratory syncytial virus infection), Dyspnea Condition: Stable Critical Care Time: No Referrals: ARABELLA LANGFORD MD [Primary Care Provider] - Follow up/PCP as directed Instructions: Cough, Adult (DC), Mononucleosis, RSV in adults - Discharge instructions Additional Instructions: Follow up with private doctor tomorrow. Forms: Work/School Release Form
[2024-07-18 11:38] VITALS: O2SAT 98
[2024-07-18 12:00] LABS: BASOPHIL % 0.6 % (0.1-1.2); Basophil (Absolute #) 0.03 x10^3/uL (0.01-0.08); Eosinophil % 3.7 % (0.7-5.8); Eosinophil (Absolute #) 0.19 x10^3/uL (0.04-0.36); Hematocrit 39.4 % (34.1-44.9); Hemoglobin 13.1 g/dL (11.2-15.7); IMMATURE GRAN # 0.02 x10^3u/L (0.001-0.031); IMMATURE GRAN % 0.4 % (0.001-0.429); Lymphocyte (Absolute #) 1.66 x10^3/uL (1.18-3.74); Mean Cell Volume 84.5 fL (79.4-94.8); Mean Corpuscular Hemoglobin 28.1 pg (25.6-32.2); Mean Corpuscular Hgb Concent. 33.2 g/dL (32.2-35.5); Monocyte (Absolute #) 0.59 x10^3/uL (0.24-0.86); Monocytes % 11.4 % (4.7-12.5); Neutrophil % 51.9 % (34.0-71.1); Platelet Count 266 x10^3/uL (182-369); Red Blood Count 4.66 x10^6/uL (3.93-5.22); Red Cell Distribution Width 12.8 % (11.7-14.4); White Blood Count 5.2 x10^3/uL (3.98-10.04)
[2024-07-18 12:07] LABS: VBG CARBOXYHEMOGLOBIN 3.7 % T HGB (0.0-6.9); VBG HCO3- 28.5 meq/L (22-28); VBG HEMOGLOBIN 13.7; VBG O2 SATURATION 63.9 (95-100); VBG pH 7.4 (7.32-7.42)
[2024-07-18 12:14] LABS: HCG SERUM TEST NEGATIVE (NEGATIVE)
[2024-07-18 12:32] LABS: ANION GAP 14.3 MEQ/L (5-15); BILIRUBIN,TOTAL 0.5 mg/dL (0.2-1.3); Calcium 9.4 mg/dL (8.4-10.2); Creatinine 1 0.68 mg/dL (0.52-1.04); EST GLOMERULAR FILTRATION RATE 112.1 ML/MIN; NT PRO BNPII 30.6 pg/mL (<300); Potassium 4.2 mmol/L (3.5-5.1); Total Protein 7.2 g/dL (6.3-8.2)
[2024-07-18 12:34] LABS: MAGNESIUM 1.9 mg/dL (1.6-2.3); TROPONIN < 0.012 ng/mL (0.000-0.033)
[2024-07-18 12:37] LABS: INFLUENZA A NEGATIVE (NEGATIVE); INFLUENZA B NEGATIVE (NEGATIVE); SARS-CoV-2 Xpert Express NEGATIVE (NEGATIVE)
[2024-07-18 12:42] LABS: RESPIRATORY SYNCTIAL VIRUS POSITIVE (NEGATIVE)
--- NOTE | 2024-07-18 13:03 | XRAY ---
Indication: Cough. Comparison: None PA/lateral chest demonstrates normal heart, lungs, and bony thorax with a few incidental calcified granulomas.
[2024-07-18 13:19] VITALS: BP 111/71
== END 2024-07-18 13:56 | disposition home or self-care (01) ==
LOC: ED 10:16
DX: B27.90 Infectious mononucleosis, unspecified without complication (principal); J06.9 Acute upper respiratory infection, unspecified; B97.4 Respiratory syncytial virus as the cause of diseases classified elsewhere; R06.00 Dyspnea, unspecified; R05.1 Acute cough; R50.9 Fever, unspecified; R07.9 Chest pain, unspecified; R42 Dizziness and giddiness; R11.0 Nausea
CPT/HCPCS: 0241U; 36415; 71046; 80053; 82150; 82805; 83605; 83690; 83735; 83880; 84484; 84703; 85025; 85379; 86308; 87651; 93005; 99285; 99283

== ENCOUNTER 2025-02-27 12:33 | Emergency (ER) | payer OTHER ==
--- NOTE | 2025-02-27 12:47 | ERPHSYRPT ---
- History of Present Illness Time Seen by Provider: 02/27/25 12:47 Source: patient Exam Limitations: no limitations Physician History: This 39-year-old white female patient home who arrives by private vehicle and is a patient of Dr. Langford who a couple of days ago was eating some type of popcorn and a kernel got caught in between tooth and gums on the side of her left lower molars. She then started having increased pain in this area and swelling. Symptoms were worsening therefore her primary care provider prescribed her some amoxicillin. She was able to take oral amoxicillin yesterday. However, today, she is unable to open her mouth because of pain and swelling in her left jaw. She is concerned that she might have a dislocation present. Patient went to emergency dental care today but they could not perform x-rays because she could not open her mouth to have them performed. Patient has a history anxiety, asthma, COPD and pancreatitis. Timing/Duration: abrupt onset Severity: moderate ENT Location: dental (Left TMJ) Prearrival Treatment: over the counter meds, prescription meds Modifying Factors: Improves With: other (Cannot open mouth) Associated Symptoms: jaw pain (Left side), tooth pain (Left lower molars) Allergies/Adverse Reactions: No Known Drug Allergies Allergy (Verified 02/27/25 12:40) Home Medications: clonazePAM [Klonopin] 1 mg PO HS 02/27/25 [History] Hx Tetanus, Diphtheria Vaccination/Date Given: Yes Hx Influenza Vaccination/Date Given: No Hx Pneumococcal Vaccination/Date Given: No Travel Risk - International Travel Have you traveled outside of the country in past 3 weeks: No - Emerging Infectious Disease Are you exhibiting symptoms associated with any current EIDs: Yes Symptoms: Cough: New Onset - Review of Systems Constitutional: No Symptoms Eyes: No Symptoms Ears, Nose, & Throat: Other (Left lower molar pain. Left jaw pain) Respiratory: No Symptoms Cardiac: No Symptoms Abdominal/Gastrointestinal: No Symptoms Genitourinary Symptoms: No Symptoms Musculoskeletal: No Symptoms Skin: No Symptoms Neurological: No Symptoms Psychological: No Symptoms Endocrine: No Symptoms Hematologic/Lymphatic: No Symptoms Immunological/Allergic: No Symptoms All Other Systems: Reviewed and Negative - Past Medical History Pertinent Past Medical History: Yes Neurological History: No Pertinent History ENT History: No Pertinent History Cardiac History: No Pertinent History Respiratory History: Asthma, COPD Endocrine Medical History: No Pertinent History Musculoskeletal History: No Pertinent History GI Medical History: Pancreatitis, Other History: No Pertinent History Psycho-Social History: No Pertinent History Female Reproductive Disorders: No Pertinent History Other Medical History: gall stones. PT REPORTS COVID INDUCED COPD PER DR LANGFORD - Past Surgical History Past Surgical History: Yes Neuro Surgical History: No Pertinent History Cardiac: No Pertinent History Respiratory: No Pertinent History Gastrointestinal: Cholecystectomy Genitourinary: No Pertinent History Musculoskeletal: No Pertinent History Female Surgical History: Dilation & Curettage, Tubal Ligation, Other Significant Family History: no pertinent family hx - Female History Hx Last Menstrual Period: 07/08/24 - Social History Smoking Status: Never smoker Exposure to second hand smoke: No Drug Use: none - Social Determinants of Health Will the patient participate in the screening: Yes Do you worry about a steady place to live?: No In the past 12 months,have you had to go without utilities?: No Transportation Issues: No Has anyone in your support network made you feel unsafe?: No Have you or anyone in your house had to go w/o enough food: No - Nursing Vital Signs Nursing Vital Signs: Initial Vital Signs Temperature 98.7 F 02/27/25 12:42 Pulse Rate 86 02/27/25 12:42 Blood Pressure 143/82 02/27/25 12:42 O2 Sat by Pulse Oximetry 99 02/27/25 12:42 Pain Scale Pain Intensity 10 - Physical Exam General Appearance: no apparent distress, alert, anxiety Eye Exam: bilateral eye: normal inspection, PERRL, EOMI Ear Exam: bilateral ear: auricle normal, canal normal, TM normal Nasal Exam: normal inspection Throat Exam: trismus Neck Exam: normal inspection, non-tender, supple, full range of motion, trachea midline Cardiovascular/Respiratory Exam: chest non-tender, no respiratory distress Abdominal Exam: non-tender Neurologic Exam: alert, oriented x 3, cooperative, bottle machine operator II-XII nml as tested, nml cerebellar function, nml station & gait, sensation nml Skin Exam: normal color, warm, dry SpO2 Interpretation: normal O2 Delivery: Room Air - Course Nursing assessment & vital signs reviewed: Yes Ordered Tests: Active Orders 24 hr Category Date Time Status IV Insertion STAT Care 02/27/25 12:48 Active FACIAL BONES WO CONTRAST [CT] Stat Exams 02/27/25 12:50 Completed AMYLASE Stat Lab 02/27/25 12:50 Completed CBC W DIFF Stat Lab 02/27/25 12:50 Completed CMP Stat Lab 02/27/25 12:50 Completed LIPASE Stat Lab 02/27/25 12:50 Completed PROCALCITONIN Stat Lab 02/27/25 12:50 Completed Medication Summary Discontinued Medications Generic Name Dose Route Start Last Admin Trade Name Freq PRN Reason Stop Dose Admin Lorazepam 0.5 mg 02/27/25 12:49 02/27/25 13:00 Lorazepam 2 Mg/1 Ml 2 Mg Vial IV 02/27/25 12:50 0.5 mg STAT ONE Administration Lorazepam Confirm 02/27/25 12:57 Lorazepam 2 Mg/1 Ml 2 Mg Vial Administered 02/27/25 12:58 Dose 2 mg .ROUTE .STK-MED ONE Morphine Sulfate 2 mg 02/27/25 12:48 02/27/25 13:01 Morphine Sulfate 2 Mg/Ml Inj IV 02/27/25 12:49 2 mg STAT ONE Administration Morphine Sulfate Confirm 02/27/25 12:57 Morphine Sulfate 2 Mg/Ml Inj Administered 02/27/25 12:58 Dose 2 mg .ROUTE .STK-MED ONE Ondansetron HCl 4 mg 02/27/25 12:48 02/27/25 13:00 Ondansetron Hcl 4 Mg/2 Ml Vial IV 02/27/25 12:49 4 mg STAT ONE Administration Ondansetron HCl Confirm 02/27/25 12:56 Ondansetron Hcl 4 Mg/2 Ml Vial Administered 02/27/25 12:57 Dose 4 mg .ROUTE .STK-MED ONE Lab/Rad Data: Laboratory Result Diagrams 02/27/25 12:50 02/27/25 12:50 Laboratory Results 02/27/25 02/27/25 02/27/25 Range/Units 12:50 12:50 12:50 WBC (3.98-10.04) x10^3/uL RBC (3.93-5.22) x10^6/uL Hgb (11.2-15.7) g/dL Hct (34.1-44.9) % MCV (79.4-94.8) fL MCH (25.6-32.2) pg MCHC (32.2-35.5) g/dL RDW (11.7-14.4) % Plt Count (182-369) x10^3/uL MPV (9.4-12.3) fL Gran % (34.0-71.1) % Immature Gran % (Auto) (0.001-0.429) % Nucleat RBC Rel Count (0.00-0.2) % Eos # (Auto) (0.04-0.36) x10^3/uL Immature Gran # (Auto) (0.001-0.031) x10^3u/L Absolute Lymphs (auto) (1.18-3.74) x10^3/uL Absolute Monos (auto) (0.24-0.86) x10^3/uL Absolute Nucleated RBC (0.00-0.012) x10^3u/L Lymphocytes % (19.3-51.7) % Monocytes % (4.7-12.5) % Eosinophils % (0.7-5.8) % Basophils % (0.1-1.2) % Absolute Granulocytes (1.56-6.13) x10^3/uL Basophils # (0.01-0.08) x10^3/uL Sodium 140 (135-145) mmol/L Potassium 4.0 (3.5-5.1) mmol/L Chloride 104 (98-107) mmol/L Carbon Dioxide 27 (22-30) mmol/L Anion Gap 13.8 (5-15) MEQ/L BUN 13 (7-17) mg/dL Creatinine 0.70 (0.52-1.04) mg/dL Estimated GFR 111.4 ML/MIN Glucose 100 (74-106) mg/dL Calcium 9.4 (8.4-10.2) mg/dL Total Bilirubin 0.60 (0.2-1.3) mg/dL AST 42 H (14-36) U/L ALT 28 (0-35) U/L Alkaline Phosphatase 82 (38-126) U/L Serum Total Protein 8.7 H (6.3-8.2) g/dL Albumin 4.5 (3.5-5.0) g/dL Amylase 62 (30-110) U/L Lipase 108 (23-300) U/L Procalcitonin 0.032 (0.030-0.080) ng/mL 02/27/25 Range/Units 12:50 WBC 9.5 (3.98-10.04) x10^3/uL RBC 4.87 (3.93-5.22) x10^6/uL Hgb 13.6 (11.2-15.7) g/dL Hct 41.9 (34.1-44.9) % MCV 86.0 (79.4-94.8) fL MCH 27.9 (25.6-32.2) pg MCHC 32.5 (32.2-35.5) g/dL RDW 12.5 (11.7-14.4) % Plt Count 325 (182-369) x10^3/uL MPV 9.4 (9.4-12.3) fL Gran % 58.5 (34.0-71.1) % Immature Gran % (Auto) 0.2 (0.001-0.429) % Nucleat RBC Rel Count 0.0 (0.00-0.2) % Eos # (Auto) 0.52 H (0.04-0.36) x10^3/uL Immature Gran # (Auto) 0.02 (0.001-0.031) x10^3u/L Absolute Lymphs (auto) 2.58 (1.18-3.74) x10^3/uL Absolute Monos (auto) 0.78 (0.24-0.86) x10^3/uL Absolute Nucleated RBC 0.00 (0.00-0.012) x10^3u/L Lymphocytes % 27.0 (19.3-51.7) % Monocytes % 8.2 (4.7-12.5) % Eosinophils % 5.5 (0.7-5.8) % Basophils % 0.6 (0.1-1.2) % Absolute Granulocytes 5.58 (1.56-6.13) x10^3/uL Basophils # 0.06 (0.01-0.08) x10^3/uL Sodium (135-145) mmol/L Potassium (3.5-5.1) mmol/L Chloride (98-107) mmol/L Carbon Dioxide (22-30) mmol/L Anion Gap (5-15) MEQ/L BUN (7-17) mg/dL Creatinine (0.52-1.04) mg/dL Estimated GFR ML/MIN Glucose (74-106) mg/dL Calcium (8.4-10.2) mg/dL Total Bilirubin (0.2-1.3) mg/dL AST (14-36) U/L ALT (0-35) U/L Alkaline Phosphatase (38-126) U/L Serum Total Protein (6.3-8.2) g/dL Albumin (3.5-5.0) g/dL Amylase (30-110) U/L Lipase (23-300) U/L Procalcitonin (0.030-0.080) ng/mL - Progress Progress: improved, pain not gone completely, re-examined Progress Note: 02/27/25 13:16 My medical decision making and the assignment of moderate complexity of this patient's medical issue today is based on review of the patient's past medical history, reviewed patient's medication list, reviewed the patient's drug allergy list, history present illness and physical findings on examination. The workup in this patient includes placement of a intravenous line, CBC, CMP, procalcitonin level, CT scan of the facial bones. Differential diagnosis includes but is not limited to trismus, dental fracture, dental infection, gingivitis, dental abscess, TMJ dislocation 02/27/25 14:57 I interpreted the patient's laboratory data results. Based on laboratory data results, there is no evidence of acute or emergent medical issue. The CT scan of the facial bones without contrast was interpreted by the radiologist and I reviewed the impression. The impression states no acute fracture or suspicious bony lesions or radiographic foreign body. There is minimal mucosal thickening right sphenoid sinus. The TMJs bilaterally are symmetric. There are no focal solid/cystic soft tissue masses on this noncontrasted exam. Counseled pt/family regarding: lab results, diagnosis, need for follow-up, rad results Medical Desision Making - Diagnostic Testing Diagnostic test were ordered, analyzed, and reviewed by me: Yes Radiological Interpretation: Reviewed by me, Teleradiologist Report - Risk of complications Low Risk: Low risk of morbidity from additional dx testing or treatment The pt has a mod risk of morbidity or mortality based on: Need for prescription drug management - Departure Departure Disposition: Home Clinical Impression: Dental infection, Trismus Condition: Stable Critical Care Time: No Referrals: ARABELLA LANGFORD MD [Primary Care Provider, INTERNAL MEDICINE] - Follow up/PCP as directed Additional Instructions: Drink plenty of clear liquids and advance your diet as tolerated. Continue your antibiotics as prescribed. Call an oral surgeon today, 02/27/2025, to make arrangements for follow-up appointment for further evaluation and management. Add Tylenol 500 mg orally 3-4 times a day ibuprofen 600 mg orally 3 times a day with food for 5 days. You may purchase children's liquid ibuprofen and children's liquid Tylenol if needed.
[2025-02-27 12:48] VITALS: TEMP 98.7
[2025-02-27] MEDS ORDERED: Zofran 4 MG/2 ML VIAL ONE (12:56)
[2025-02-27] MEDS ORDERED: MORPHINE SULFATE 2 MG INJ ONE (12:57)
[2025-02-27] MEDS ORDERED: Ativan 2 MG/1 ML VIAL ONE (12:57)
[2025-02-27] MEDS: Ativan 2 MG/1 ML VIAL IV ONE (13:00)
[2025-02-27] MEDS: Zofran 4 MG/2 ML VIAL IV ONE (13:00)
[2025-02-27] MEDS: MORPHINE SULFATE 2 MG INJ IV ONE (13:01)
[2025-02-27 13:02] LABS: BASOPHIL % 0.6 % (0.1-1.2); Basophil (Absolute #) 0.06 x10^3/uL (0.01-0.08); Eosinophil (Absolute #) 0.52 x10^3/uL (0.04-0.36); Hematocrit 41.9 % (34.1-44.9); Hemoglobin 13.6 g/dL (11.2-15.7); IMMATURE GRAN # 0.02 x10^3u/L (0.001-0.031); IMMATURE GRAN % 0.2 % (0.001-0.429); Lymphocyte (Absolute #) 2.58 x10^3/uL (1.18-3.74); Mean Corpuscular Hemoglobin 27.9 pg (25.6-32.2); Mean Corpuscular Hgb Concent. 32.5 g/dL (32.2-35.5); Monocyte (Absolute #) 0.78 x10^3/uL (0.24-0.86); NUCLEATED RBC # 0.00 x10^3u/L (0.00-0.012); NUCLEATED RBC % 0.0 % (0.00-0.2); Platelet Count 325 x10^3/uL (182-369); Red Blood Count 4.87 x10^6/uL (3.93-5.22); White Blood Count 9.5 x10^3/uL (3.98-10.04)
[2025-02-27 13:23] LABS: Calcium 9.4 mg/dL (8.4-10.2); Carbon Dioxide 27.0 mmol/L (22-30); Creatinine 1 0.7 mg/dL (0.52-1.04); EST GLOMERULAR FILTRATION RATE 111.4 ML/MIN; Glucose 100.0 mg/dL (74-106); Potassium 4.0 mmol/L (3.5-5.1); SGOT/AST 42.0 U/L (14-36); SGPT/ALT 28.0 U/L (0-35); Total Protein 8.7 g/dL (6.3-8.2)
[2025-02-27 13:33] VITALS: O2SAT 97
--- NOTE | 2025-02-27 14:45 | XRAY ---
Indication: Left jaw pain/swelling. Multiple contiguous axial images obtained through the facial bones without contrast. Sagittal and coronal reformatted images obtained. Comparison: None No acute fracture, suspicious bony lesions, or radiopaque foreign body. Orbits including roof, reza, and floors intact. Minimal mucosal thickening right sphenoid sinus. Remaining paranasal sinuses and nasal passages are clear. TMJ bilaterally symmetric. There are scattered cm/subcm cervical and submandibular nodes, none pathologically enlarged. No focal solid/cystic soft tissue mass on this noncontrast exam. Visualized cervical spine and base of brain unremarkable. Impression: Minimal right sphenoid sinus disease. Remaining CT facial bones negative.
[2025-02-27] MEDS ORDERED: ROCEPHIN 1 GM / 100 ML NaCl 1 GM/100 ML IVPB IV ONE (15:05)
[2025-02-27] MEDS: ROCEPHIN 1 GM / 100 ML NaCl 1 GM/100 ML IVPB IV ONE (15:07)
[2025-02-27 15:12] VITALS: BP 124/76; PULSE 70; RESP 16
== END 2025-02-27 15:51 | disposition home or self-care (01) ==
LOC: ED 12:33
DX: K04.7 Periapical abscess without sinus (principal); R25.2 Cramp and spasm; R68.84 Jaw pain; Z79.899 Other long term (current) drug therapy